=== PATIENT | female | born 1960 | race African-American/Black ===

== ENCOUNTER → 2017-06-26 | Outpatient (CLI) | payer OTHER ==
[~2017-06-26] MED LIST: ACETAMINOP325 MG/10 PEG; ACIDOPHILUS1 EAC1 PEG; ATORVASTATIN CA40 MG PEG; DOCUSATE SODIU100 MG PEG; FERROUS SULFAT325 MG PEG; KEPPRA500 MG PEG; LOW DOSE ASPIRI81 MG PEG
== END ==
LOC: NPA 12:00
PROVIDERS: ATTEND Internal Medicine
DX: R69 Illness, unspecified (principal)

== ENCOUNTER → 2017-06-27 | Outpatient (CLI) | payer OTHER | LOC: NPA 13:00 | PROVIDERS: ATTEND Internal Medicine | DX: R69 Illness, unspecified (principal) | CPT/HCPCS: 82270 ==

== ENCOUNTER → 2017-07-02 | Outpatient (CLI) | payer OTHER | LOC: NPA 13:00 | PROVIDERS: ATTEND Internal Medicine | DX: R69 Illness, unspecified (principal) ==

== ENCOUNTER 2017-07-07 10:31 | Emergency (ER) | payer MEDICARE ==
[~2017-07-07] VITALS: Ht 160 cm; Wt 56.7 kg
[2017-07-08] MEDS ORDERED: DOCUSATE SODIU100 MG PEG (12:23)
[2017-07-08] MEDS ORDERED: FERROUS SULFAT325 MG PEG (12:23)
[2017-07-08] MEDS ORDERED: KEPPRA500 MG PEG (12:23)
[2017-07-08] MEDS ORDERED: ACETAMINOP325 MG/10 PEG (12:23)
[2017-07-08] MEDS ORDERED: LOW DOSE ASPIRI81 MG PEG (12:23)
[2017-07-08] MEDS ORDERED: ACIDOPHILUS1 EAC1 PEG (12:23)
[2017-07-08] MEDS ORDERED: ATORVASTATIN CA40 MG PEG (12:23)
== END 2017-07-07 15:25 | disposition home or self-care (01) ==
LOC: ER 10:41
DX: Z43.1 Encounter for attention to gastrostomy (principal); F03.90 Unspecified dementia, unspecified severity, without behavioral disturbance, psychotic disturbance, mood disturbance, and anxiety; R13.10 Dysphagia, unspecified; I10 Essential (primary) hypertension; E11.9 Type 2 diabetes mellitus without complications; I48.91 Unspecified atrial fibrillation; I25.10 Atherosclerotic heart disease of native coronary artery without angina pectoris; Z86.73 Personal history of transient ischemic attack (TIA), and cerebral infarction without residual deficits; Z93.0 Tracheostomy status
CPT/HCPCS: 99284

== ENCOUNTER 2017-07-08 11:26 | Emergency (ER) | payer MEDICARE ==
[~2017-07-08] VITALS: Ht 160 cm; Wt 56.7 kg
[2017-07-08] MEDS ORDERED: ATORVASTATIN CA40 MG PEG (12:23)
[2017-07-08] MEDS ORDERED: LOW DOSE ASPIRI81 MG PEG (12:23)
[2017-07-08] MEDS ORDERED: DOCUSATE SODIU100 MG PEG (12:23)
[2017-07-08] MEDS ORDERED: KEPPRA500 MG PEG (12:23)
[2017-07-08] MEDS ORDERED: ACETAMINOP325 MG/10 PEG (12:23)
[2017-07-08] MEDS ORDERED: ACIDOPHILUS1 EAC1 PEG (12:23)
[2017-07-08] MEDS ORDERED: FERROUS SULFAT325 MG PEG (12:23)
== END 2017-07-08 14:00 ==
LOC: ER 11:26
DX: Z43.1 Encounter for attention to gastrostomy (principal); Z79.82 Long term (current) use of aspirin
CPT/HCPCS: 99282

== ENCOUNTER 2017-07-11 09:47 | Emergency (ER) | payer MEDICARE ==
[~2017-07-11] VITALS: Ht 160 cm; Wt 56.7 kg
--- NOTE | 2017-07-11 11:10 | Diagnostic Imaging Report ---
PROCEDURE:X-RAY ABDOMEN - KUB COMPARISON:None. INDICATIONS:GASTRIC TUBE PLACEMENT FINDINGS: A metallic linear density overlies the left upper quadrant at the L2 level. Retention button of a gastrostomy tube is noted on one view at the L3-L4 level. No contrast has been injected through this tube to confirm whether it is luminal or not. There are no dilated loops of bowel to suggest obstruction. Barium contrast within the left colon is present. There are no masses or abnormal calcifications. There is no evidence of free air. There is vascular calcification. Degenerative changes of the spine. CONCLUSION: No acute abdominal abnormality. Medhat Gallego D.O. Dictated by: Medhat Gallego D.O. on 07/11/2017 at 11:19 Electronically approved by: Medhat Gallego D.O. on 07/11/2017 at 11:19
[2017-07-11] MEDS ORDERED: DIATRIZOATE MEGL/DIATRIZOA SOD 30 ML BTL PO ONE (11:31)
--- NOTE | 2017-07-11 12:19 | Diagnostic Imaging Report ---
PROCEDURE:X-RAY ABDOMEN - KUB COMPARISON:KUB 07/11/2017 at 10:42 AM. INDICATIONS:GASTROGRAFFIN INJECTED THROUGH GTUBE FINDINGS: There are no dilated loops of bowel to suggest obstruction. There are no masses or abnormal calcifications. There is no evidence of free air. No acute osseous abnormalities are present. Gastrografin is located within the stomach. Pre-existing positive oral contrast in the descending and sigmoid colon CONCLUSION: Gastrografin is located within the stomach. Pre-existing positive oral contrast in the descending and sigmoid colon Dictated by: Deniz Noel M.D. on 07/11/2017 at 12:27 Electronically approved by: Deniz Noel M.D. on 07/11/2017 at 12:27
== END 2017-07-11 17:20 | disposition home or self-care (01) ==
LOC: ER 09:47
DX: Z43.1 Encounter for attention to gastrostomy (principal); R13.10 Dysphagia, unspecified; F03.90 Unspecified dementia, unspecified severity, without behavioral disturbance, psychotic disturbance, mood disturbance, and anxiety; I10 Essential (primary) hypertension; E11.9 Type 2 diabetes mellitus without complications; I25.10 Atherosclerotic heart disease of native coronary artery without angina pectoris; Z86.73 Personal history of transient ischemic attack (TIA), and cerebral infarction without residual deficits
CPT/HCPCS: 74000; 99284

== ENCOUNTER → 2017-07-16 | Outpatient (CLI) | payer OTHER ==
[2017-07-16 16:20] LABS: HEMATOCRIT 33.7 % (34.2-44.1); HEMOGLOBIN 10.3 g/dL (12.0-16.0); LYMPHOCYTES # (AUTO) 0.9 (1.0-3.2); LYMPHOCYTES % 23.7 % (18.0-39.1); MEAN CORPUSCULAR HEMOGLOBIN 21.1 pg (28-32); MEAN CORPUSCULAR HGB CONC 30.6 g/dL (31-35); MEAN CORPUSCULAR VOLUME 69.2 fL (81-99); MONOCYTES # (AUTO) 0.7 (0.2-0.8); MONOCYTES % 17.2 % (4.4-11.3); NEUTROPHILS # (AUTO) 2.3 (2.1-6.9); NEUTROPHILS % 58.1 % (38.7-80.0); PLATELET COUNT 252 x10e3/uL (140-360); RED BLOOD COUNT 4.87 x10e6/uL (3.6-5.1)
== END ==
LOC: NPA 12:30
PROVIDERS: ATTEND Internal Medicine
DX: Z02.89 Encounter for other administrative examinations (principal)
CPT/HCPCS: 36415; 85025

== ENCOUNTER → 2017-07-26 | Outpatient (CLI) | payer OTHER | LOC: NPA 11:30 | PROVIDERS: ATTEND Internal Medicine | DX: Z02.89 Encounter for other administrative examinations (principal) ==

== ENCOUNTER → 2017-08-01 | Outpatient (CLI) | payer OTHER ==
[2017-08-01 14:43] LABS: BASOPHILS # (AUTO) 0.1 (0.0-0.1); BASOPHILS % 0.8 % (0.0-1.0); EOSINOPHILS # (AUTO) 0.1 (0.0-0.4); HEMATOCRIT 35.4 % (34.2-44.1); HEMOGLOBIN 10.5 g/dL (12.0-16.0); LYMPHOCYTES # (AUTO) 1.3 (1.0-3.2); LYMPHOCYTES % 21.6 % (18.0-39.1); MEAN CORPUSCULAR HEMOGLOBIN 20.7 pg (28-32); MEAN CORPUSCULAR HGB CONC 29.7 g/dL (31-35); MEAN CORPUSCULAR VOLUME 69.8 fL (81-99); MONOCYTES # (AUTO) 0.4 (0.2-0.8); MONOCYTES % 7.4 % (4.4-11.3); PLATELET COUNT 481 x10e3/uL (140-360); RED BLOOD COUNT 5.07 x10e6/uL (3.6-5.1); RED CELL DISTRIBUTION WIDTH 20.2 % (11.7-14.4)
== END ==
LOC: NPA 11:00
PROVIDERS: ATTEND Internal Medicine
DX: Z02.89 Encounter for other administrative examinations (principal)
CPT/HCPCS: 36415; 85025

== ENCOUNTER → 2017-08-08 | Outpatient (CLI) | payer OTHER ==
[2017-08-08 15:51] LABS: ANION GAP 14.8 mmol/L (8-16); BLOOD UREA NITROGEN 15 mg/dL (7-26); BUN/CREATININE RATIO 19 (6-25); CALCIUM 9.5 mg/dL (8.4-10.2); CARBON DIOXIDE 27 mmol/L (22-29); CHLORIDE 103 mmol/L (98-107); CREATININE, SERUM 0.78 mg/dL (0.57-1.11); EST GLOMERULAR FILTRATION RATE > 60 ML/MIN (60-); GLUCOSE 97 mg/dL (74-118); POTASSIUM 3.8 mmol/L (3.5-5.1); SODIUM 141 mmol/L (136-145)
[2017-08-08 15:58] LABS: BASOPHILS # (AUTO) 0.1 (0.0-0.1); BASOPHILS % 0.9 % (0.0-1.0); EOSINOPHILS # (AUTO) 0.1 (0.0-0.4); EOSINOPHILS % 1.8 % (0.0-6.0); HEMATOCRIT 34.8 % (34.2-44.1); HEMOGLOBIN 10.4 g/dL (12.0-16.0); LYMPHOCYTES % 17.9 % (18.0-39.1); MEAN CORPUSCULAR HEMOGLOBIN 20.6 pg (28-32); MEAN CORPUSCULAR HGB CONC 29.9 g/dL (31-35); MEAN CORPUSCULAR VOLUME 68.9 fL (81-99); MONOCYTES # (AUTO) 0.7 (0.2-0.8); MONOCYTES % 11.4 % (4.4-11.3); NEUTROPHILS # (AUTO) 3.9 (2.1-6.9); NEUTROPHILS % 67.6 % (38.7-80.0); PLATELET COUNT 361 x10e3/uL (140-360); RED BLOOD COUNT 5.05 x10e6/uL (3.6-5.1); RED CELL DISTRIBUTION WIDTH 20.3 % (11.7-14.4)
== END ==
LOC: NPA 10:18
PROVIDERS: ATTEND Internal Medicine
DX: Z02.89 Encounter for other administrative examinations (principal)
CPT/HCPCS: 36415; 80048; 85025

== ENCOUNTER → 2017-08-15 | Outpatient (CLI) | payer OTHER ==
[2017-08-15 12:19] LABS: BASOPHILS % 0.5 % (0.0-1.0); EOSINOPHILS # (AUTO) 0.1 (0.0-0.4); EOSINOPHILS % 0.8 % (0.0-6.0); HEMATOCRIT 34.2 % (34.2-44.1); HEMOGLOBIN 10.3 g/dL (12.0-16.0); LYMPHOCYTES # (AUTO) 1.3 (1.0-3.2); LYMPHOCYTES % 14.9 % (18.0-39.1); MEAN CORPUSCULAR HGB CONC 30.1 g/dL (31-35); MEAN CORPUSCULAR VOLUME 69.8 fL (81-99); MONOCYTES # (AUTO) 0.8 (0.2-0.8); NEUTROPHILS # (AUTO) 6.4 (2.1-6.9); NEUTROPHILS % 74.7 % (38.7-80.0); PLATELET COUNT 331 x10e3/uL (140-360); RED CELL DISTRIBUTION WIDTH 20.2 % (11.7-14.4)
== END ==
LOC: NPA 10:47
PROVIDERS: ATTEND Internal Medicine
DX: Z02.89 Encounter for other administrative examinations (principal)
CPT/HCPCS: 36415; 85025